=== PATIENT | female | born 1985 ===

== ENCOUNTER → 2020-12-17 | Outpatient (CLI) | payer OTHER ==
[~2020-12-17] MED LIST: HUMULIN N100 UNIT/2 SUBCUTANEO; HUMULIN R100 UNIT/1 SUBCUTANEO; INSULIN SYRING1 EA29 SUBCUTANEO
== END | disposition home or self-care (01) ==
LOC: PRENATAL 10:30
PROVIDERS: ATTEND Obstetrics & Gynecology Maternal & Fetal Medicine
DX: O26.851 Spotting complicating pregnancy, first trimester (principal); O36.80X1 Pregnancy with inconclusive fetal viability, fetus 1; O99.891 Other specified diseases and conditions complicating pregnancy; O24.311 Unspecified pre-existing diabetes mellitus in pregnancy, first trimester; Z36.89 Encounter for other specified antenatal screening; Z3A.08 8 weeks gestation of pregnancy

== ENCOUNTER 2021-01-23 09:20 | Outpatient (CLI) | payer OTHER | END 2021-01-23 11:13 | disposition home or self-care (01) | LOC: PRENATAL 09:20 | PROVIDERS: ATTEND Obstetrics & Gynecology Maternal & Fetal Medicine | DX: O24.410 Gestational diabetes mellitus in pregnancy, diet controlled (principal); O36.80X1 Pregnancy with inconclusive fetal viability, fetus 1; Z36.89 Encounter for other specified antenatal screening; Z3A.11 11 weeks gestation of pregnancy ==

== ENCOUNTER 2021-03-22 08:32 | Outpatient (CLI) | payer OTHER | END 2021-03-22 09:42 | disposition home or self-care (01) | LOC: PRENATAL 08:32 | PROVIDERS: ATTEND Obstetrics & Gynecology Maternal & Fetal Medicine | DX: O35.0XX1 Maternal care for (suspected) central nervous system malformation in fetus, fetus 1 (principal); O35.3XX1 Maternal care for (suspected) damage to fetus from viral disease in mother, fetus 1; O98.512 Other viral diseases complicating pregnancy, second trimester; Z36.89 Encounter for other specified antenatal screening; Z3A.20 20 weeks gestation of pregnancy ==

== ENCOUNTER 2021-05-03 09:15 | Outpatient (CLI) | payer OTHER | END 2021-05-03 10:15 | disposition home or self-care (01) | LOC: PRENATAL 09:15 | PROVIDERS: ATTEND Obstetrics & Gynecology Maternal & Fetal Medicine | DX: O26.842 Uterine size-date discrepancy, second trimester (principal); O24.410 Gestational diabetes mellitus in pregnancy, diet controlled; Z36.89 Encounter for other specified antenatal screening; Z3A.26 26 weeks gestation of pregnancy ==

== ENCOUNTER 2021-06-14 08:47 | Outpatient (CLI) | payer OTHER | END 2021-06-14 09:26 | disposition home or self-care (01) | LOC: PRENATAL 08:47 | PROVIDERS: ATTEND Obstetrics & Gynecology Maternal & Fetal Medicine | DX: O26.843 Uterine size-date discrepancy, third trimester (principal); O36.8131 Decreased fetal movements, third trimester, fetus 1; O35.0XX1 Maternal care for (suspected) central nervous system malformation in fetus, fetus 1; O24.410 Gestational diabetes mellitus in pregnancy, diet controlled; Z36.89 Encounter for other specified antenatal screening; Z3A.32 32 weeks gestation of pregnancy ==

== ENCOUNTER 2021-07-12 09:05 | Outpatient (CLI) | payer OTHER | END 2021-07-12 10:00 | disposition home or self-care (01) | LOC: PRENATAL 09:05 | PROVIDERS: ATTEND Obstetrics & Gynecology Maternal & Fetal Medicine | DX: O35.0XX0 Maternal care for (suspected) central nervous system malformation in fetus, not applicable or unspecified (principal); O99.210 Obesity complicating pregnancy, unspecified trimester; O35.3XX0 Maternal care for (suspected) damage to fetus from viral disease in mother, not applicable or unspecified ==

== ENCOUNTER 2021-08-06 06:42 | Inpatient (IN) | payer OTHER ==
[~2021-08-06] VITALS: Ht 180.3 cm; Wt 75.7 kg
[2021-08-06] MEDS ORDERED: PRENATAL TABLE1 EAC3 (09:06)
== END 2021-08-09 12:01 | disposition home or self-care (01) | DRG 807 ==
LOC: OB/GYN 06:42 → LDR 06:42 → OB/GYN 08-07 00:06
PROVIDERS: ADMIT Obstetrics & Gynecology; ATTEND Obstetrics & Gynecology
PROC: 10E0XZZ Delivery of Products of Conception, External Approach (ICD-10-PCS; principal; 2021-08-06)
PROC: 0W8NXZZ Division of Female Perineum, External Approach (ICD-10-PCS; 2021-08-06)
PROC: 4A1HXCZ Monitoring of Products of Conception, Cardiac Rate, External Approach (ICD-10-PCS; 2021-08-06)
DX: O80 Encounter for full-term uncomplicated delivery (principal); Z37.0 Single live birth; Z3A.39 39 weeks gestation of pregnancy; Z20.822 Contact with and (suspected) exposure to COVID-19